=== PATIENT | male | born 1970 | race Caucasian/White ===

== ENCOUNTER 2017-03-09 23:25 | Emergency (ER) | payer BC ==
[~2017-03-09] VITALS: Ht 160 cm; Wt 94.8 kg
[~2017-03-09 23:25] MED LIST: TYLOX1 CAPSULE PO
[2017-03-09 23:43] LABS: HEMATOCRIT 45.5 % (38.0-50.0); MCH 30.7 PG (29.0-34.0); MCHC 35.2 G/DL (30.0-36.0); MCV 87.3 FL (86-99); MEAN PLAT.VOLUME 9.3 uM^3 (9.0-12.4); PLATELET COUNT 296 K/uL (156-360); RBC DIS.WIDTH-CV 12.8 % (11.8-14.6); RBC DIS.WIDTH-SD 40.6 % (39-53); RED BLOOD COUNT 5.21 M/uL (4.00-5.50); WHITE BLOOD COUNT 15.5 K/uL (4.1-10.2)
[2017-03-09 23:54] LABS: CHLORIDE 102 mEq/L (99-109); POTASSIUM 4.1 mEq/L (3.7-5.4); SODIUM 137 mEq/L (136-147)
[2017-03-09 23:56] LABS: GLUCOSE 98 mg/dL (70-99)
[2017-03-09 23:57] LABS: ANION GAP 13 MEQ/L (2-14)
[2017-03-09 23:58] LABS: TOTAL BILIRUBIN 1.1 mg/dL (0.0-1.0)
[2017-03-09 23:59] LABS: ALKALINE PHOSPHATASE 78 IU/L (3-129)
[2017-03-10] LABS: GFR ESTIMATE (CALCULATED) 49 mL/min/
[2017-03-10 00:01] LABS: UREA NITROGEN (BUN) 17 mg/dL (9-23)
[2017-03-10 01:02] LABS: ADD MIUA? YES; BILIRUBIN NEGATIVE; BLOOD LARGE; COLOR YELLOW ((YELLOW)); GLUCOSE (STRIP) NEGATIVE; KETONES 5; LEUKOCYTES NEGATIVE; NITRITE NEGATIVE; PROTEIN (STRIP) 30; SPECIFIC GRAVITY 1.029 (1.000-1.030); UROBILINOGEN 0.2 MG/DL (0.2-1.0)
[2017-03-10 01:06] LABS: BACTERIA NONE SEEN /HPF; EPITHELIAL CELLS RARE /HPF; HYALINE CASTS 30-40 /LPF; MUCUS 2+ /LPF; RED BLOOD CELLS 30-40 /HPF (0-5); UCUL ADDED? YES
[2017-03-10] MEDS ORDERED: ZOFRAN4 MG PO (01:58)
[2017-03-10] MEDS ORDERED: PERCOCET 5/31 TABLET PO (01:58)
[2017-03-10 02:38] VITALS: BP 139/85
== END 2017-03-10 02:39 | disposition home or self-care (01) ==
LOC: EME 23:25
DX: N20.0 Calculus of kidney (principal)
CPT/HCPCS: 74176; 80053; 81003; 85027; 87086; 99281; 99285; J2405; J3010; J7030